=== PATIENT | female | born 1945 | race Caucasian/White ===

== ENCOUNTER 2018-11-04 10:41 | Inpatient (IN) ==
[2018-11-04] MEDS ORDERED: DUONEB (A & A) INH ONE (11:02)
[2018-11-04] MEDS ORDERED: SOLU-MEDROL IV ONE (11:03)
--- NOTE | 2018-11-04 11:06 | PROVIDER DOCUMENTATION ---
HPI-General Adult - General Chief Complaint: Shortness of Breath Stated Complaint: FLUID ON LUNG Time Seen by Provider: 11/04/18 10:58 Source: patient Allergies/Adverse Reactions: Patient Allergies Allergy/AdvReac Type Severity Reaction Status Date / Time No Known Allergies Allergy Verified 10/08/12 12:56 Home Medications: Home Medication List Medication Instructions Recorded Confirmed Last Taken Type Lovastatin [Altoprev] 40 mg PO DAILY 01/30/12 10/08/12 10/07/12 21:00 History Sotalol [Betapace] 120 mg PO BID 01/30/12 10/08/12 10/08/12 08:00 History Zolpidem [Ambien] 5 mg PO QHS 01/30/12 10/08/12 10/07/12 21:00 History Aspirin 81 mg PO DAILY 10/08/12 10/08/12 10/08/12 08:00 History Acetaminophen [Tylenol] 650 mg PO PRN PRN #0 tablet 10/11/12 Unknown Rx Amoxicillin/Pot Clavulanate 875 mg PO Q12HR #16 tablet 10/11/12 Unknown Rx [Augmentin] Enoxaparin [Lovenox] 40 mg SUBQ Q24H #5 syringe 10/11/12 Unknown Rx Magnesium Hydroxide [Milk of 30 ml PO DAILY PRN PRN #0 udc 10/11/12 Unknown Rx Magnesia] Omeprazole [Prilosec] 20 mg PO DAILY@0700 #0 capsule 10/11/12 Unknown Rx Sertraline [Zoloft] 100 mg PO QAM #0 tablet 10/11/12 Unknown Rx Tramadol [Ultram] 50 mg PO Q6H PRN PRN #0 tablet 10/11/12 Unknown Rx - History of Present Illness -Gen Adult Nature of Presenting Problems: Pt. is 73 yof that presents with c/o SOB for two weeks. Pt. reports she thought it would get better. She denies being a smoker and states she went to her PCP today and he sent her to the ED. She has no other complaints. Location of Pain/Injury: reports: none. denies: head, face, mouth, neck, chest, upper extremity, hand(s), abdomen, back, pelvis, genitalia, lower extremity, feet, upper body, lower body, generalized, other Pain Radiation: reports: no radiation. denies: arm(s), back, buttocks, chest, epigastric, feet, groin, jaw, flank (L), legs (lower), LLQ, LUQ, neck, periumbilical, flank (R), RLQ, RUQ, shoulder(s), scapula, scrotal, sternal notch, suprapubic, legs (upper), urethral, vaginal, other Quality of Pain: reports: none. denies: aching, pressure, sharp, throbbing, tightness Severity: reports: moderate. denies: mild, severe Onset/Duration: reports: gradual, other (Two weeks) Timing: reports: still present. denies: improving, constant, getting worse Context/Activities at Onset: reports: none. denies: light activity, moderate activity, vigorous activity, recent emotional stress, recent physical stress, recent trauma history, possible bad food, cold exposure, eating, out of country travel, rest, sleep, sexual activity, other Modifying Factors: improves with: nothing Associated Symptoms: reports: shortness of breath. denies: denies symptoms, anxiety, arm pain, back/neck pain, chest pain, constipation, cough, diaphoresis, diarrhea, dizziness, EENT symptoms, fatigue, fever/chills, genitourinary problems, headaches, heartburn, joint pain, loss of appetite, malaise, muscle aches, sinus congestion/drainage, nausea, rash, seizure, sensory/motor loss, payam n with inspiration, swelling/mass in abdomen, syncope, vomiting, weakness, trouble walking, other Similar Symptoms Previously?: Yes Recently seen or treated by another doctor?: Yes Review of Systems - Adult - REVIEW OF SYSTEMS - ADULT Constitutional: reports: no symptoms reported Eyes: reports: no symptoms reported Ears, Nose, Mouth & Throat: reports: no symptoms reported Cardiovascular: reports: no symptoms reported Respiratory: reports: see HPI, shortness of breath. denies: cough, dyspnea on exertion, pleurisy Gastrointestinal: reports: no symptoms reported Genitourinary: reports: no symptoms reported Musculoskeletal: reports: no symptoms reported Integumentary: reports: no symptoms reported Neurological: reports: no symptoms reported Psychiatric: reports: no symptoms reported Past History - Adult - PAST MEDICAL HISTORY-ADULT Review of Records: reports: Old Records Reviewed, Nursing Assessment Review, Medications Reviewed, Social history reviewed & non-contributory. - IMMUNIZATION STATUS Childhood Immunizations: See Nurse Assessment Flu Vaccine: See Nurse Assessment - FAMILY HISTORY Family History: reviewed, not pertinent - SOCIAL HISTORY Smoking: non-smoker Physical Exam-General - PHYSICAL EXAM-ADULT Initial Vital Signs Reviewed: Yes - CONSTITUTIONAL General Appearance: alert, mild distress. negative: anxious, slow to respond, obtunded, combative - EYES Eyes: PERRL/EOMI, pink conjunctivae - HEAD, EARS, NOSE, MOUTH & THROAT HENMT: normocephalic/atraumatic, moist mucous membranes - NECK Neck: non-tender, full range of motion, supple, normal inspection - RESPIRATORY Respiratory: decreased breath sounds. negative: crackles, rales, rhonchi, stridor, wheezing - CARDIOVASCULAR Cardiovascular: normal peripheral pulses, regular rate, rhythm, no edema - GASTROINTESTINAL (ABDOMEN) Abdominal Exam: normal bowel sounds, non tender, soft - LYMPHATIC Lymphatic: no adenopathy. negative: axilla node tender, cervical node tenderness - MUSCULOSKELETAL Back Exam: normal inspection, no CVA tenderness, no vertebral tenderness Extremity: normal range of motion, non-tender, normal inspection. negative: erythema, inflammation, swelling, tenderness Peripheral Pulses: radial (R): 2+, radial (L): 2+ - SKIN Integumentary: normal color, normal turgor, warm/dry. negative: erythema, mottled, warm - NEUROLOGIC Neurologic: grossly normal, no motor/sensory deficits - PSYCHIATRIC Psych/Mental Status: normal mood/affect, normal thought content, normal thought process, oriented x 3. negative: anxious, paranoid, tearful Progress - PLAN OF CARE/RESULTS Progress/Plan/Lab Results: Vital Signs - 8 hr 11/04/18 10:45 Temperature 98 F Pulse Rate 58 L Respiratory Rate 22 Blood Pressure 147/81 O2 Sat by Pulse Oximetry 92 L Orders Category Date Time Status Saline Loc NOW Care 11/04/18 11:01 Active CHEST-2 VIEWS [RAD] Stat Exams 11/04/18 11:02 Ordered ABG [RESP] Routine Lab 11/04/18 11:02 Ordered CBC WITH ELECTRONIC DIFF [HEME] Stat Lab 11/04/18 11:01 Uncollected CK PROFILE [SP CHEM] Stat Lab 11/04/18 11:01 Uncollected COMPREHENSIVE METABOLIC PANEL [CHEM] Stat Lab 11/04/18 11:01 Uncollected PRO B-NATRIURETIC PEPTIDE Stat Lab 11/04/18 11:02 Ordered TROPONIN T Stat Lab 11/04/18 11:[address] W/POSS RFLX CULT [URINALYSIS] Stat Lab 11/04/18 11:02 Uncollected Albuterol 2.5MG/Ipratrop 0.5MG [Duoneb (A & A)] Med 11/04/18 11:02 Once 3 ml INH NOW ONE Methylprednisolone Sod Succ [Solu-Medrol] Med 11/04/18 11:03 Once 80 mg IV NOW ONE Aerosol Treatments Routine Oth 11/04/18 11:03 Active Aerosol Treatments Stat Oth 11/04/18 11:03 Active EKG [EKG] Stat Ther 11/04/18 11:01 Ordered Result Diagrams: 11/04/18 11:41 11/04/18 11:41 - XRAY 1 XRAY Study: Chest ([address], [address], [place] [address] Department of Imaging Patient: AUNDREA RAMIREZ Date: #: [id number] : 1945DM Status: REG ERAt#: [id number] Age/Sex: 73/FRoom/Bed: Loc: P.ED Ordering Physician: Luz Elena Clark Family Physician: Renaldo Dunn MD Reason for Procedure: SOB ___ Signed CHEST-2 VIEWS - 11/04/2018 INDICATION: SOB COMPARISON: 10/08/2012 FINDINGS: There is a pulmonary nodule in the right middle lobe. 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 No infiltrates or edema. No pneumothorax or pleural effusion. There is a stable atrial septal defect occluder. Heart size and pulmonary vascularity is normal. IMPRESSION: No acute disease or change from prior. Electronically signed by Garrick Golden 11/04/2018 11:44 AM 11/04/18 1144 Interpreting Physician: Garrick Golden MD Dictated Date/Time: 11/04/18 1136 cc: Luz Elena Clark; Renaldo Dunn MD) XRAY Interpretation: See note - CONSULTS/PCP/HOSPITALIST Notification #1 *Consult/PCP/Hospitalist*: Dr. Irving Time Discussed: 14:10 Reason/Comments: Admission Consult Disposition: Admit (Put patient on Rocephin q24h) Departure - Departure Date of Disposition Decision: 11/04/18 Time of Disposition Decision: 13:39 DIAGNOSIS: Shortness of breath, Hypoxia Disposition: ADMITTED INPATIENT 09 Certified Medical Emergency: Emergent Condition: Stable Referrals and Follow-Ups: Renaldo Dunn MD [Primary Care Provider] - - Critical Care Note This patient required my direct & personal management of CC.: No Attestation - Physician/ HENRIK Attestation Patient care was provided by Advanced Practice Provider:: Yes Advanced Practice Provider:: Luz Elena Clark Advanced Practice Provider documentation review:: The Mid-level provider do cumentation, treatment plan and medical decision making was reviewed by the physician who agrees with all treatment and medical decision making by the MLP. The physician spent face to face time with patient:: No Advanced Practice Provider documentation review:: Supervising physician onsite and consulted in the evaluation and care of this patient. The physician did not have a face to face encounter with the patient.
--- NOTE | 2018-11-04 11:46 | Diag Imaging Result Doc PS360 ---
CHEST-2 VIEWS - 11/04/2018 INDICATION: SOB COMPARISON: 10/08/2012 FINDINGS: There is a pulmonary nodule in the right middle lobe. 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 No infiltrates or edema. No pneumothorax or pleural effusion. There is a stable atrial septal defect occluder. Heart size and pulmonary vascularity is normal. IMPRESSION: No acute disease or change from prior. Electronically signed by Garrick Golden 11/04/2018 11:44 AM
[2018-11-04 12:04] LABS: HEMATOCRIT 45.9 % (37.0-47.0); HEMOGLOBIN 15.7 g/dL (12.0-16.0); MCH 30.6 PG (27-31); MCHC 34.2 g/dL (33-37); MCV 89.5 FL (81-99); MPV 10.9 FL (7.4-10.4); NEUT% 58.6 % (42.2-75.2); PLT 240 X1000 (130-400); RBC 5.13 XMIL (4.2-5.4); RDW 12.3 % (11.5-14.5); WBC 6.84 X1000 (4.8-10.8)
[2018-11-04 12:05] LABS: BASO# 0.02 X1000 (0.0-0.2); BASO% 0.3 % (0.0-0.8); EOS# 0.37 X1000 (0.0-0.7); EOS% 5.4 % (0.0-10.0); IMM GRAN# 0.03 X1000 (0.0-0.04); IMM GRAN% 0.4 % (0.0-0.5); LYMPH# 1.64 X1000 (1.2-3.4); MONO# 0.77 X1000 (0.11-0.59); MONO% 11.3 % (1.7-9.3); NEUT# 4.01 X1000 (1.4-6.5)
[2018-11-04 12:25] LABS: BLOOD TYPE ARTERIAL; HCO3-(ACT) 24.8 mmoll (20.0-26.0); METHB 0.6 % (0.0-1.5); O2(CT) 20.9 mL/dL (15.0-23.0); O2HB 92.3 % (95.0-99.0); PCO2(98.6) 43 mmHg (35-45); PO2(98.6) 63 mmHg (60-100); SAMPLE BLOOD; SAO2 94.4 % (95.0-100.0); THB 16.1 g/dL (11.5-17.4); pH(98.6) 7.38 (7.35-7.45)
[2018-11-04 12:27] LABS: ALLEN TEST YES; MODALITY CANNULA
[2018-11-04 12:32] LABS: AGAP 11; ALBUMIN 4.7 g/dL (3.5-5.0); ALKALINE PHOSPHATASE 73 U/L (32-104); BUN 18 mg/dL (8-22); CALCIUM 9.7 mg/dL (8.8-10.2); CHLORIDE 105 mmol/L (98-107); CK PROFILE 85 U/L (24-173); COSMO 288; CREATININE 0.9 mg/dL (0.5-0.9); ESTIMATED GFR > 60; GLUCOSE 113 mg/dL (70-104); GOT 16 U/L (10-30); GPT 15 U/L (10-36); POTASSIUM 4.4 mmol/L (3.5-5.1); SODIUM 143 mmol/L (136-145); TCO2 27 mmol/L (25-35); TOTAL PROTEIN 7.3 g/dL (6.3-8.3)
--- NOTE | 2018-11-04 12:36 | EKG Report ---
Test Performed on : 11/04/2018 11:23:01 AM Test Reason : SOB Blood Pressure : / mmHG Vent. Rate : 058 BPM Atrial Rate : 058 BPM P-R Int : 174 ms QRS Dur : 084 ms QT Int : 458 ms P-R-T Axes : 018 021 029 degrees QTc Int : 449 ms Sinus bradycardia. Cannot rule out Inferior infarct , age undetermined Abnormal ECG When compared with ECG of 30-JAN-2012 18:35, Minimal criteria for Inferior infarct are now present Unconfirmed Result
--- NOTE | 2018-11-04 12:41 | ED EKG INTERP ---
This chart was entered by Melodie Paulson Scribe, acting as scribe for Jaime Reyes MD. EKG Interpretation - EKG Time of EKG reading by physician:: 11:23 EKG Read and Signed by:: Jaime Reyes EKG Interpretation (*Must complete 3 of following elements*): Abnormal (cannot rule out inferior infarct, age undetermined early transition) Rate: 58 Rhythm: sinus bradycardia QRS: normal ST Wave: normal Attestation - Physician/ HENRIK Attestation Patient care was provided by Advanced Practice Provider:: No The physician spent face to face time with patient:: Yes Advanced Practice Provider documentation review:: Supervising physician onsite and consulted in the evaluation and care of this patient. The physician did have a face to face encounter with the patient. This chart was documented by the indicated scribe, (Melodie Paulson Scribe) and accurately reflects the services I performed and decisions made by , Jaime Reyes MD, as attested by the provider's signature.
[2018-11-04 13:18] LABS: BILIRUBIN URINE NEGATIVE (NEGATIVE); BLOOD URINE 4+ (NEGATIVE); CLARITY SL. CLOUDY (CLEAR); COLOR YELLOW; GLUCOSE URINE NEGATIVE (NEGATIVE); KETONE URINE TRACE mg/dL (NEGATIVE); LEUKOCYTES URINE 1+ (NEGATIVE); NITRITE URINE NEGATIVE (NEGATIVE); PH URINE 6.5; PROTEIN URINE 1+(30 mg/dL) mg/dL (NEGATIVE); SP GRAVITY URINE 1.025; UROBILINOGEN URINE NORMAL
[2018-11-04 13:37] LABS: URINE RBC 20-40 /HPF (<10)
[2018-11-04 13:38] LABS: URINE BACTERIA 2+ /HFP; URINE EPITHELIAL CELLS <10 /HPF (<10); URINE SOURCE CLEAN CATCH
[2018-11-04] MEDS: ROCEPHIN 1 GM in NS 50 ML IV SCH (14:33)
--- NOTE | 2018-11-04 14:41 | Diag Imaging Result Doc PS360 ---
CT ANGIOGRM PULMONARY ARTERIES - 11/04/2018 INDICATION: SOB TECHNIQUE: Axial CT images were obtained after administering intravenous contrast. Coronal MIP images were generated. COMPARISON: 10/08/2012 FINDINGS: There is significant patient motion artifact. There is no pulmonary embolism. There is a stable pulmonary arteriovenous malformation at the medial segment of the right middle lobe. There is mild cardiomegaly. No adenopathy. No infiltrates. Most of the abdomen was also imaged. There is severe left hydronephrosis. There are several large obstructing stones in the proximal and mid left ureter. These measure up to 8 mm. There is also a large left renal stone measuring 14 x 8.4 mm. There are large stones in the right kidney as well but no hydronephrosis. The large right renal stone measures about 13 x 8.7 mm. IMPRESSION: 1. Negative for pulmonary embolism. 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 2. Severe left hydronephrosis due to numerous large obstructing left ureter stones. 3. Large bilateral renal stones. This exam was performed using automated exposure control, adjustment of mA or kV according to patient size, and/or use of iterative reconstruction technique Electronically signed by Garrick Golden 11/04/2018 2:38 PM
[2018-11-04] MEDS: DUONEB (A & A) INH SCH ×3 (15:49→23:18)
[2018-11-04] MEDS: COMPAZINE PO SCH (16:37)
--- NOTE | 2018-11-04 18:21 | HISTORY AND PHYSICAL ---
CHIEF COMPLAINT: Shortness of breath for 2 weeks. HISTORY OF PRESENT ILLNESS: This is a 73-year-old female with a history of tobacco use, prior CVA, paroxysmal atrial fibrillation who presented to the emergency room complaining of 2 weeks of shortness of breath. The patient states that symptoms have waxed and waned during this time. She was evaluated in an Urgent Care this morning prior to coming to the ER. She was found to have a room air O2 saturation 88%. They sent her to the emergency room for evaluation of possible pneumonia and pulmonary edema. PAST MEDICAL HISTORY: Skin cancer, CVA x2 in 1988 and 2003, seizures. PAST SURGICAL HISTORY: section and PFO repair. SOCIAL HISTORY: She denies alcohol, tobacco, or illicit drug use. ALLERGIES: No known drug allergies. HOME MEDICATIONS: A list will be obtained by the nursing staff, and once verified, we will review and restart as is appropriate. REVIEW OF SYSTEMS: Discussed with the patient with pertinent positives stated in the HPI. She denied any syncope or dizziness, any chest pain or palpitations, any night sweats, any fevers or chills, recent weight loss or weight gain, a productive cough, any nausea, vomiting, diarrhea, constipation, black or bloody vomitus or stools, any hematuria, dysuria, frequency, urgency. PHYSICAL EXAMINATION: GENERAL: This is a 73-year-old female who is lying on the stretcher in the emergency room in no distress. VITAL SIGNS: Blood pressure is 137/86 with a heart rate of 60. Respirations are 19. Temperature is 98.1 degrees oral with room air saturations that were 92% and sats are 96% on 2 L nasal cannula. CARDIOVASCULAR: Regular rate and rhythm. S1 and S2 appreciated. She has no lower extremity edema. Calves are nontender bilateral with peripheral pulses palpable x4 extremities. PULMONARY: Breath sounds are noted with wheezes scattered throughout. Chest rises and falls symmetrically with respiration. Chest wall is nontender to palpation. GASTROINTESTINAL: Abdomen is soft, nontender, nondistended with bowel sounds in all 4 quadrants. GENITOURINARY: She has no CVA or suprapubic tenderness. NEUROLOGIC: She is alert and oriented x3. SKIN: Warm and dry. LABORATORY DATA: 1. WBC is 6.8 with hemoglobin 15.7, hematocrit 45.9, and platelets of 240,000. Sodium is 143, potassium 4.4, BUN 18, creatinine 0.9 with a glucose of 113. Troponin is negative. Urinalysis reveals 1+ protein with 4+ blood with 20 to 40 microscopic red blood cells, 10 to 20 microscopic white blood cells, less than 10 epithelial cells and 2+ bacteria. 2. Chest x-ray revealed no acute disease. 3. Pulmonary arteriogram revealed negative for pulmonary embolism, stable longstanding pulmonary arterial venous malformation in the right middle lobe. 4. Severe left hydronephrosis due to numerous large obstructing left ureter stones. 5. Large bilateral renal stones with the left measuring 14 x 8.4 mm, the right 13 x 8.7 mm. Of note, she does have several obstructing stones in the proximal and mid left ureter that measure up to 8 mm per radiology read with severe left hydronephrosis. ASSESSMENT AND PLAN: 1. Obstructing left ureter stones with left hydronephrosis. 2. Bilateral renal stones as stated above. 3. Shortness of breath. 4. Hypoxemia. 5. Urinary tract infection. 6. History of cerebrovascular accident. PLAN: The patient will be transferred to [facility]. Dr. Rodriguez in Urology will be consulted. NPO till evaluated by urology. Urine culture has been obtained in the emergency room. She was given Rocephin, which will continue, and further antibiotics will be culture driven. Give DuoNebs q.4 hours. We will identify her home medications and continue as appropriate. We will give supplemental oxygen. For DVT prophylaxis, we will use SCDs and GI prophylaxis, Prilosec. Further treatments pending hospital course. Dictated by MARICRUZ Moore for Jay Jay Irving MD cc: MARICRUZ Moore MD [facility]
[2018-11-04] MEDS: BETAPACE PO SCH (21:40)
[2018-11-04] MEDS: AMBIEN PO PRN (21:41)
[2018-11-05] MEDS: DUONEB (A & A) INH SCH ×6 (03:21→23:43)
[2018-11-05] MEDS ORDERED: TYLENOL PO PRN (04:32)
--- NOTE | 2018-11-05 05:23 | HISTORY AND PHYSICAL ---
ADDENDUM: Patient seen and examined by myself. Full note dictated and discussed with nurse practitioner. She presented to the hospital initially with heart problems and felt dizzy and lightheaded. Upon workup, she was noted to have severe left hydronephrosis with large obstructing left ureteral stones. We will transfer her to [facility] for Urology. We will follow-up blood pressures which are currently elevated, and we will follow. cc: Jay Jay Irving MD
--- NOTE | 2018-11-05 05:24 | HISTORY AND PHYSICAL ---
ADDENDUM: Patient seen and examined by myself. Full note dictated and discussed with nurse practitioner. The patient is a 73-year-old female who presented to the hospital with increased cough, congestion, and shortness of breath for the past 2 weeks. She is also noted to be hypoxic. We will admit her to the hospital and follow. cc: Jay Jay Irving MD
[2018-11-05] MEDS: PRILOSEC PO SCH (06:11)
[2018-11-05] MEDS: BETAPACE PO SCH ×2 (09:16→21:16)
[2018-11-05] MEDS: LEXAPRO PO SCH (09:16)
[2018-11-05] MEDS: COMPAZINE PO SCH ×3 (09:17→17:29)
[2018-11-05] MEDS: ROCEPHIN 1 GM in NS 50 ML IV SCH (13:39)
--- NOTE | 2018-11-05 14:42 | PROGRESS NOTE ---
DATE: 11/05/2018 SUBJECTIVE: Today Ms. Aguillon referred to be doing a little better. She said she did have some difficulty breathing, especially on exertion; that was the main presenting complaint. She said this has been going on for some time, and it has reached a point where even in recumbency she is still symptomatic. OBJECTIVE: Vital signs: Blood pressure is 124/44, pulse of , respirations 16, temperature 98.2 degrees. On general exam, Ms. Aguillon is a 73-year-old obese female. She is in bed. BMI is 33.3. She did not seem to be in any distress. Mucosa is pink and moist. Anicteric. Acyanotic. Neck is supple. Chest: Good air entry bilateral. Did not hear any crepitations or rhonchi. Cardiovascular: Regular rate and rhythm. Abdomen is soft, distended, but nontender. Bowel sounds present. Extremities: No pedal edema. Central Nervous System: Patient is awake, alert, and oriented. DIAGNOSTIC STUDIES: Laboratory data from yesterday was unremarkable. Urinalysis has also been reviewed. So far, urine culture is negative. A chest x-ray showed no acute disease. A CTA of the lungs was negative. However, there was a severe left hydronephrosis due to numerous large obstructing left ureteral stones. There were also large bilateral renal stones. ASSESSMENT: 1. Severe left hydronephrosis with bilateral nephrolithiases. Urology has been consulted. The patient is currently on IV antibiotics. 2. Dyspnea on exertion associated with fatigue. So far troponin and proBNP seem to be normal. We are going to do iron studies. We will also do TSH to rule out any thyroid endocrinopathy. It is also very possible that this is medication induced, especially the sotalol. Echocardiogram has also been ordered. 3. History of cerebrovascular accident with mild left-sided hemiparesis. Noted. 4. History of atrial fibrillation. On sotalol. Currently rate controlled. cc: Rachid Easley MD
[2018-11-05] MEDS: AMBIEN PO PRN (22:01)
[2018-11-06] MEDS: DUONEB (A & A) INH SCH ×5 (03:29→19:00)
[2018-11-06] MEDS: PRILOSEC PO SCH (06:08)
[2018-11-06] MEDS: BETAPACE PO SCH ×2 (08:48→20:26)
[2018-11-06] MEDS: COMPAZINE PO SCH ×6 (08:53→18:10)
[2018-11-06] MEDS: LEXAPRO PO SCH (09:02)
[2018-11-06 09:18] LABS: BASO# 0.03 X1000 (0.0-0.2); BASO% 0.3 % (0.0-0.8); EOS# 0.06 X1000 (0.0-0.7); EOS% 0.5 % (0.0-10.0); HEMATOCRIT 45.7 % (37.0-47.0); HEMOGLOBIN 15.7 g/dL (12.0-16.0); IMM GRAN# 0.03 X1000 (0.0-0.04); IMM GRAN% 0.3 % (0.0-0.5); LYMPH% 21.8 % (20.5-51.1); MCH 30.5 PG (27-31); MCHC 34.4 g/dL (33-37); MCV 88.9 FL (81-99); MONO# 1.42 X1000 (0.11-0.59); MONO% 12.9 % (1.7-9.3); MPV 11.3 FL (7.4-10.4); NEUT# 7.05 X1000 (1.4-6.5); NEUT% 64.2 % (42.2-75.2); PLT 271 X1000 (130-400); RBC 5.14 XMIL (4.2-5.4); RDW 12.3 % (11.5-14.5); WBC 10.99 X1000 (4.8-10.8)
[2018-11-06 10:03] LABS: ALB/GLOB RATIO 1.3; ALBUMIN 4.1 g/dL (3.5-5.0); CALCIUM 9.7 mg/dL (8.8-10.2); POTASSIUM 3.9 mmol/L (3.5-5.1); TOTAL BILIRUBIN 0.58 mg/dL (0.20-1.00); TOTAL PROTEIN 7.3 g/dL (6.3-8.3)
[2018-11-06 10:04] LABS: IRON SATURATION 25 %; TIBC 285 ug/dL; TOTAL IRON 71 ug/dL (49-151); UNBOUND IRON 214 ug/dL (112-346)
[2018-11-06 10:09] LABS: FERRITIN 211 ng/mL (13-150)
[2018-11-06] MEDS ORDERED: XYLOCAINE-MPF 2% ONE (10:45)
[2018-11-06] MEDS ORDERED: DIPRIVAN 1% ONE ×2 (10:45→11:47)
[2018-11-06] MEDS ORDERED: EPHEDRINE ONE (11:31)
[2018-11-06] MEDS ORDERED: UROGESIC-BLUE PO PRN (12:36)
--- NOTE | 2018-11-06 13:26 | Diag Imaging Result Doc PS360 ---
FLUROSCOPY CYSTO - 11/06/2018 INDICATION: LT URETEROSCOPY/ LASER LITH TECHNIQUE: The exam was performed by the patient's urologist. 15 images were obtained. COMPARISON: CT from 11/04/2018 FINDINGS: There was placement of a wire and instrument in the left ureter. A left nephroureteral stent was placed in good position. IMPRESSION: No complication. Electronically signed by Garrick Golden 11/06/2018 1:23 PM
--- NOTE | 2018-11-06 14:41 | ECHO REPORT ---
ORDER DATE: 11/05/2018 MEASUREMENTS: Septal thickness 0.9. Left ventricular internal diameter end-diastole 4.4. Posterior wall thickness 0.9. Left ventricular internal diameter end-systole 3.1. Right atrium. 3.2. Right ventricle 3.6. SUMMARY: 1. Adequate quality study. 2. Very mild sclerosis involving trileaflet aortic valve demonstrated with normal aortic valve opening evident. Peak gradient across the aortic valve is less than 10 mmHg. Mitral, tricuspid, and pulmonic valves are without evidence of structural abnormality with trace mitral regurgitation, trace tricuspid regurgitation, and mild pulmonic insufficiency. The aortic root is normal size. 3. Normal left ventricular dimensions demonstrated. Estimated left ventricular ejection fraction approximately 60%. No regional wall motion abnormalities are evident. Doppler suggests grade 1 left ventricular diastolic dysfunction. Left atrium, right atrium, right ventricle normal size with normal right ventricular systolic function. Interatrial septum appears to have a closure device in its midportion. There is no evidence on color Doppler of interatrial shunting. Intravenous agitated saline contrast study demonstrates right to left shunting. This shunting does not appear to be coming across the interatrial septum, but rather recurring in a somewhat delayed fashion after 3 to 4 beats, potentially due to pulmonary AV malformation. 4. No pericardial effusion. 5. Appearance of inferior vena cava suggests normal central venous pressure. cc: MD Rachid Dawson MD
--- NOTE | 2018-11-06 15:09 | PROGRESS NOTE ---
DATE: 11/06/2018 SUBJECTIVE: Today Ms. Aguillon refers to be feeling much better. She just came out of surgery where a left J-stent was put. I am still waiting for the official report on the surgery to know specifically what was done. OBJECTIVELY: Her Current Vitals: Blood pressure 127/98, pulse of 70s, respiration is 18, temperature is 98.6 degrees. On general exam, Ms. Aguillon is a 73-year-old female. She is in bed, no distress. Mucosa is pink and moist. Anicteric. Acyanotic. Neck is supple. Chest: Good air entry bilateral. There were no crepitations, no rhonchi. Cardiovascular: Regular rate and rhythm. No murmurs, no rubs, no gallops. Abdomen: Soft. Extremities: No pedal edema. Central Nervous System: Patient is awake, alert, and oriented. DIAGNOSTIC STUDIES: Laboratory data has been reviewed. WBC is up to 10.99, hemoglobin is 15.7, platelet count 271. Chemistry is also reviewed and unremarkable. So far, iron studies have all been within normal range. The patient's echocardiogram shows an ejection fraction of 60%. No regional wall motion abnormality, but there is a suggestion of possible pulmonary AV malformation on the echo report. ASSESSMENT: 1. Severe left hydronephrosis. The patient is status post urological intervention. A double-J stent has been placed. We are going to continue with the current antimicrobial therapy. Patient will also be started on gentle IV hydration. 2. Dyspnea on presentation. ProBNP is normal. Echocardiogram shows normal ejection fraction and unremarkable valves so this is probably non-cardiac. There is also mention of a [id number] shunting, potentially due to a pulmonary AV malformation which could potentially cause some of the dyspnea. 3. History of history of previous cerebrovascular accident with mild left-sided hemiparesis. 4. History of atrial fibrillation. Patient is on sotalol. 5. Generalized fatigue. The patient is getting gentle hydration. Medications have been reviewed, and we will get Physical Therapy to evaluate her. cc: Rachid Easley MD
[2018-11-06] MEDS: ROCEPHIN 1 GM in NS 50 ML IV SCH (15:20)
[2018-11-06] MEDS: NS 1,000 ML IV SCH ×2 (15:24→22:30)
[2018-11-06] MEDS: NORCO-7.5 PO PRN (18:08)
[2018-11-06] MEDS ORDERED: ADENOCARD IV ONE (18:21)
[2018-11-06] MEDS: KLONOPIN PO SCH ×2 (18:23→22:30)
--- NOTE | 2018-11-06 19:13 | PROGRESS NOTE ---
DATE: 11/06/2018 SUBJECTIVE: I evaluated this patient at the bedside. I requested an EKG that showed SVT, at this the patient's heart rate has been elevated for at least more than 20 minutes. I did some vagal maneuvers, but the heart rate stayed elevated. Then, I proceeded to use some adenosine 6 mg x1, and I monitored this patient at the bedside. After getting treatment stat, the heart rate came back to normal sinus. For a moment this patient was a little bit dizzy, but then the patient felt better. I will transfer this patient to the [facility], and also I will get Cardiology Department to see if they can evaluate this patient probably in the morning, not only for her SVT but also, she has an echocardiogram that showed an intravenous agitated saline contrast that demonstrate right-to- left shunting. This shunting does not appear to be coming across the interatrial septum, but rather recurrent in a somewhat delayed fashion after 3 to 4 beats. Potentially it could be related to pulmonary IV malfunction. I am not quite sure if this patient has a regular agency service coordinator, but I believe she should have 1 in [facility]. Like I mentioned before, we will monitor this patient in the [facility]. cc: Matt Mujica MD
[2018-11-06] MEDS ORDERED: ADENOCARD ONE (19:37)
[2018-11-07] MEDS: DUONEB (A & A) INH SCH ×7 (03:45→23:23)
[2018-11-07] MEDS: NS 1,000 ML IV SCH ×3 (05:05→17:36)
[2018-11-07 05:41] LABS: BASO# 0.02 X1000 (0.0-0.2); BASO% 0.3 % (0.0-0.8); EOS# 0.12 X1000 (0.0-0.7); EOS% 1.5 % (0.0-10.0); HEMATOCRIT 41.9 % (37.0-47.0); HEMOGLOBIN 14.3 g/dL (12.0-16.0); IMM GRAN# 0.02 X1000 (0.0-0.04); IMM GRAN% 0.3 % (0.0-0.5); LYMPH# 1.91 X1000 (1.2-3.4); LYMPH% 24.1 % (20.5-51.1); MCH 30.6 PG (27-31); MCHC 34.1 g/dL (33-37); MCV 89.7 FL (81-99); MONO# 1.16 X1000 (0.11-0.59); MONO% 14.7 % (1.7-9.3); MPV 10.6 FL (7.4-10.4); NEUT# 4.68 X1000 (1.4-6.5); NEUT% 59.1 % (42.2-75.2); PLT 223 X1000 (130-400); RBC 4.67 XMIL (4.2-5.4); RDW 12.3 % (11.5-14.5); WBC 7.91 X1000 (4.8-10.8)
[2018-11-07] MEDS: PRILOSEC PO SCH ×2 (05:56→06:10)
[2018-11-07 06:08] LABS: AGAP 12; ALBUMIN 3.4 g/dL (3.5-5.0); BUN 15 mg/dL (8-22); CALCIUM 9.3 mg/dL (8.8-10.2); CHLORIDE 106 mmol/L (98-107); COSMO 284; CREATININE 0.8 mg/dL (0.5-0.9); ESTIMATED GFR > 60; GLUCOSE 98 mg/dL (70-104); PHOSPHORUS 3.2 mg/dL (2.7-4.5); POTASSIUM 3.3 mmol/L (3.5-5.1); SODIUM 142 mmol/L (136-145); TCO2 24 mmol/L (25-35)
--- NOTE | 2018-11-07 07:29 | EKG Report ---
Test Performed on : 11/06/2018 6:04:27 PM Test Reason : elevated HR /SVT Blood Pressure : / mmHG Vent. Rate : 161 BPM Atrial Rate : 178 BPM P-R Int : 000 ms QRS Dur : 084 ms QT Int : 306 ms P-R-T Axes : 000 074 -51 degrees QTc Int : 500 ms Supraventricular tachycardia. Marked ST abnormality, possible inferior subendocardial injury Abnormal ECG When compared with ECG of 04-NOV-2018 11:23, (Unconfirmed) Vent. rate has increased BY 103 BPM Minimal criteria for Inferior infarct are no longer present ST now depressed in Inferior leads ST now depressed in Anterolateral leads T wave inversion now evident in Inferior leads T wave inversion now evident in Anterolateral leads Confirmed by Yunier MCLAIN, Eduardo Rojas ([id number]) on 11/07/2018 5:09:23 PM
--- NOTE | 2018-11-07 08:04 | EKG Report ---
Test Performed on : 11/06/2018 6:26:44 PM Test Reason : REPEAT Blood Pressure : / mmHG Vent. Rate : 088 BPM Atrial Rate : 088 BPM P-R Int : 172 ms QRS Dur : 082 ms QT Int : 378 ms P-R-T Axes : 022 018 023 degrees QTc Int : 457 ms Normal sinus rhythm. Nonspecific ST and T wave abnormality Abnormal ECG When compared with ECG of 06-NOV-2018 18:04, (Unconfirmed) Vent. rate has decreased BY 73 BPM Questionable change in QRS axis ST no longer depressed in Inferior leads T wave inversion no longer evident in Inferior leads T wave inversion less evident in Anterolateral leads Confirmed by Yunier MCLAIN, Eduardo Rojas ([id number]) on 11/07/2018 5:09:26 PM
[2018-11-07] MEDS ORDERED: MAGNESIUM SULFATE 2 GM/S.W.I. 2 GM/50 ML IVPB IV ONE (08:05)
[2018-11-07] MEDS: KLONOPIN PO SCH ×2 (08:46→20:09)
[2018-11-07] MEDS: COMPAZINE PO SCH ×5 (08:46→18:07)
[2018-11-07] MEDS: LEXAPRO PO SCH (08:46)
[2018-11-07] MEDS: BETAPACE PO SCH ×2 (08:46→20:09)
[2018-11-07] MEDS: POTASSIUM CHLORIDE 20 MEQ/SWI 20 MEQ/100 ML IVPB IV SCH ×2 (08:47→11:11)
--- NOTE | 2018-11-07 09:27 | OPERATIVE NOTE ---
PROCEDURE DATE: 11/06/2018 SURGEON: Deni Rodriguez MD. PREOPERATIVE DIAGNOSIS: Left ureteral stones, hydronephrosis. POSTOPERATIVE DIAGNOSIS: Left ureteral stones, hydronephrosis. PROCEDURE: Cystoscopy, left ureteroscopy, laser lithotripsy, stone basket extraction of 2 ureteral stones, placement of 6-Indonesian, 22 cm left ureteral stent. INDICATIONS: 73-year-old female who was admitted to the hospital with shortness of breath. In the process, she underwent a pulmonary arteriogram which revealed bilateral renal stones as well as obstructing left proximal ureteral stone with significant hydronephrosis. She was counseled on treatment given that 1 of the stones was 8 mm and another one was 6 mm. She desires to proceed with intervention. FINDINGS: Findings both stones were treated. The stone fragments were sent off for analysis. Adequate placement of left ureteral stent. PROCEDURE: After obtaining informed consent, patient was brought to the operating room. Perioperative antibiotics and anesthesia were administered. She was placed in the lithotomy position, prepped and draped in sterile fashion. A 21-Indonesian rigid cystoscope was used to gain access to the urethra and the bladder which was then examined in systematic fashion. Her bladder showed no evidence of mucosal lesions, excessive trabeculations, or diverticula. There were no stones within the bladder lumen. Attention was turned to the left ureteral orifice which was cannulated with PTFE wire. It was in turn advanced to the level of left renal pelvis although we met resistance at the level of proximal ureter. Then fluoroscopically were able to see the stones. I then advanced a rigid ureteroscope up to the level of the 1st stone. A 0 Nitinol basket was placed more proximally. A 365 micron Holmium laser fiber was then used to break the stone up into smaller fragments. Those were extracted with the basket. Repeat ureteroscopy in a more proximal level revealed a 2nd stone which was approximately 6 mm as opposed to 8 mm was the 1st one. We had used the laser to break it up into small fragments as well. Repeat ureteroscopy to the level of ureteropelvic junction and actually the renal pelvis then showed no evidence of sizable residual stone fragments and no evidence of ureteral injury. Given the large stones in the left renal pelvis and significant mucosal edema, we elected to place a ureteral stent. In a standard fashion 6-Indonesian, 22 cm ureteral stent was placed over the wire via the cystoscope with the proximal coil position confirmed fluoroscopically, distal coil visualized. The bladder was emptied. Cystoscope was removed. She was extubated and taken to PACU for further recovery. ESTIMATED BLOOD LOSS: None. COMPLICATIONS: None. SPECIMENS: Left ureteral stone fragments which were sent off for analysis DRAINS: 6-Indonesian, 22 cm stent. DISPOSITION: Back to the floor. I have discussed the patient with Dr. Easley and we agree to observe overnight given her admission was shortness of breath and if doing well she will be discharged the following morning. I have discussed with the patient that I will plan on performing a left ESWL and stent removal in the near future given her large left-sided renal stones. She voiced understanding. cc: Deni Rodriguez MD
--- NOTE | 2018-11-07 10:08 | PROGRESS NOTE ---
DATE: 11/07/2018 SUBJECTIVE: This morning Ms. Aguillon refers to be feeling a lot better. Denies any chest pain. No shortness of breath. Ms. Aguillon underwent cystoscopy, left ureteroscopy, laser lithotripsy and basket extraction of 2 stones, and placement of a 6-Syrian, 22 cm left ureteral stent yesterday. Postoperatively, she was okay. However, late yesterday in the evening she did have some shortness of breath associated with elevated heart rate. The EKG tracing revealed SVT. The patient was attended to by Dr. May. Adenosine was given to her and that resolved the SVT episode. She was transferred to CICU where she has been observed throughout the night, and by the telemetry monitoring tracing she seems to have been in sinus rhythm throughout the night. OBJECTIVE: Her current vitals: Blood pressure is 119/98, pulse of 72, respirations 17 and temperature is 97.7 degrees. Patient is saturating 95% on 4 L. General: Ms. Aguillon is a 73- year-old female. She is in bed. She is not in any cardiopulmonary distress. HEENT: Mucosa is pink and moist. Anicteric. Acyanotic. Neck: Supple. Chest: Clear to auscultation. No crepitations. No rhonchi. Cardiovascular: Regular rate and rhythm. No murmurs, no rubs, no gallops. Abdomen: Soft, nontender. Bowel sounds present. Extremities: No pedal edema. PLANT CHIEF: Patient is awake, alert, oriented x3. LABORATORY DATA: Has been reviewed. CBC is unremarkable. Chemistry: Potassium is 3.3. Rest of chemistry is unremarkable. ASSESSMENT: 1. Severe left hydronephrosis status post urological intervention. Today is day 1 postoperatively. Patient seems to be doing a lot better. 2. History of paroxysmal atrial fibrillation. The patient was on sotalol at home. However, during the hospital course, she did develop supraventricular tachycardia and was given adenosine. This morning, she seems to be asymptomatic. She is in sinus rhythm. We will get Cardiology to evaluate her before she gets discharged. 3. 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 4. Generalized fatigue, improved. 5. Dyspnea on presentation with normal echocardiogram and normal proBNP. Unsure the etiology. But it could be multifactorial: medication related, paroxysmal cardiac arrhythmia and pulmonary AV malformation causing shunts. In any case, the patient's symptoms have resolved. 6. 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 PLAN: So, in general, Ms. Aguillon seems to be completely asymptomatic at this point. Heart is in sinus rhythm and normal rate. We are pending Cardiology evaluation today. I think after that patient can potentially be discharged if no further intervention is needed. Of note Ms. Aguillon used to follow up with a [employer] and, since she is living here in [place] for the past 11 years, she has not seen any [employer] and she has been on sotalol. She normally follows up with her primary care doctor. cc: Rachid Easley MD MTDD
--- NOTE | 2018-11-07 10:47 | EKG Report ---
Test Performed on : 11/07/2018 10:39:07 AM Test Reason : SVT Blood Pressure : / mmHG Vent. Rate : 062 BPM Atrial Rate : 062 BPM P-R Int : 172 ms QRS Dur : 084 ms QT Int : 464 ms P-R-T Axes : 032 030 056 degrees QTc Int : 470 ms Normal sinus rhythm. Normal ECG When compared with ECG of 06-NOV-2018 18:26, (Unconfirmed) ST no longer depressed in Anterior leads Nonspecific T wave abnormality, worse in Lateral leads Confirmed by Yunier MCLAIN, Eduardo Rojas ([id number]) on 11/07/2018 5:10:02 PM
[2018-11-07] MEDS: NORCO-7.5 PO PRN (11:16)
[2018-11-07 11:41] LABS: CK INDEX 2.5 (0.0-2.5); CK-MB 6.06 ng/mL (0.0-5.0)
[2018-11-07] MEDS: ROCEPHIN 1 GM in NS 50 ML IV SCH (13:36)
--- NOTE | 2018-11-07 21:53 | CONSULTATION ---
DATE OF CONSULTATION: 11/07/2018 IMPRESSION: 1. Recurrent episode of supraventricular tachycardia, interrupted with adenosine. Patient continues in sinus rhythm. 2. 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 Echocardiography suggests significant degree of agjor-gy-[id number] interatrial shunting on intravenous agitated saline contrast study sufficient to raise concern for potential for paradoxical embolus. This indeed is a concern given history of recurrent cerebrovascular accident x3. There also needs to be some consideration of the possibility of hereditary hemorrhagic telangiectasia (Nciak-Jwmaz-Egapk syndrome). 3. Dyspnea on presentation with normal LV function and normal ProBNP. 4. History of patent foramina ovale. Patient is status post what appears to be an Amplatzer closure device in 2003 following her second cerebrovascular accident. 5. Recurrent cerebrovascular accident initially in 1988. Then in 2003 and last episode of cerebrovascular accident 2012. Patient has residual left-sided weakness and walks with a cane. 6. She has no known drug allergies. RECOMMENDATIONS: 1. Filter intravenous fluid administrations to prevent air embolus. 2. Obtain brain imaging study to screen for AVM. 3. At least in the short term favor pursuit of anticoagulation to lessen the risk for paradoxical embolus. Ultimately, patient should be considered for embolization of pulmonary AVM. 4. Antibiotic prophylaxis with dental procedures is appropriate to prevent septic emboli and associated abscess. 5. If hereditary hemorrhagic telangiectasia discovered, consider genetic testing and possibly screening of family members. HISTORY: This 73-year-old white female with past history of recurrent cerebrovascular accident, percutaneous closure of patent foramen ovale, and pulmonary arterial venous malformation was admitted with two weeks of shortness of breath symptoms. Patient was seen in urgent care prior to coming to the emergency room and was found to have oxygen saturation of 88%. There has been no orthopnea. She has not had any chest pain. She prefers to lie on her left side and tends to not want to get up much according to family. She is not certain as to why she prefers to do this, but possibility of positional hypoxemia is to be considered. She suffered initial cerebrovascular accident in 1988 and had recurrent cerebrovascular accident in 2003. At that time, she had percutaneous closure of PFO with Amplatzer device. She has had paroxysmal supraventricular tachycardia and has been on sotalol for 15 years to suppress this. PAST MEDICAL HISTORY: 1. Recurrent cerebrovascular accident. 2. Pulmonary arterial venous malformation. 3. Paroxysmal supraventricular tachycardia suppressed with sotalol. 4. Status post Amplatzer device. 5. Nephrolithiasis. 6. Status post cystoscopy and ureteral stent for left ureteral stone. 7. Past surgical history also includes section. 8. She also has history of skin cancer removal. 9. Previous seizures in the past. ALLERGIES: She has no known drug allergies. MEDICATIONS: Prior to admission as listed. SOCIAL HISTORY: She is . She lives at home. She does not smoke nor use alcohol. FAMILY HISTORY: Negative for premature coronary disease. There is no known family history of arteriovenous malformations. REVIEW OF SYSTEMS: Pulmonary: Noteworthy for dyspnea over the last 2 weeks but negative for orthopnea. Gastrointestinal: Negative. Constitutional: Negative for fever. Remainder of review of systems negative/noncontributory with 14 total systems reviewed. PHYSICAL EXAMINATION: General: This is a pleasant, overweight elderly white female in no distress. Vital signs: Blood pressure 132/51, heart rate 60, oxygen saturation 90-94% on nasal cannula oxygen at 2 L/minute. HEENT: Extraocular movements appear intact. Dentition is in poor repair. Mucous membranes are moist. Neck: Supple without jugular venous distention. No carotid bruits. Chest: Clear to auscultation bilaterally. Cardiac Exam: Reveals a regular rate and rhythm without appreciable murmur or gallop. Abdomen: Soft. Bowel sounds are normal. Extremities: Without edema. Neurologic: Exam reveals her to be awake and responsive. Speech is fluent. She has some left-sided weakness, more so on the left lower extremity. PERTINENT DATA: Twelve lead EKG obtained last night during supraventricular tachycardia demonstrates narrow complex tachycardia that appears to be supraventricular tachycardia with associated rate related ST and T-wave abnormality. Repeat ECG following administration of adenosine shows abrupt interruption of supraventricular tachycardia with normal sinus rhythm and nonspecific ST and T-wave abnormality demonstrated. LABORATORY DATA: Includes a white blood cell count 7.91, hematocrit 41.9, hemoglobin 14.3, platelet count 223. Sodium 142, potassium 3.3, chloride 106, carbon dioxide 24, BUN 15, creatinine 0.8. Glucose 98. cc: Hipolito Rocha MD
[2018-11-07] MEDS: AMBIEN PO PRN (22:51)
[2018-11-08] MEDS: NS 1,000 ML IV SCH ×2 (02:15→06:10)
[2018-11-08] MEDS: DUONEB (A & A) INH SCH ×4 (03:32→15:53)
[2018-11-08] MEDS: PRILOSEC PO SCH ×2 (05:38→06:10)
[2018-11-08] MEDS: KLONOPIN PO SCH (08:44)
[2018-11-08] MEDS: COMPAZINE PO SCH ×2 (08:44→12:47)
[2018-11-08] MEDS: BETAPACE PO SCH (08:44)
[2018-11-08] MEDS: LEXAPRO PO SCH (08:44)
--- NOTE | 2018-11-08 09:11 | Diag Imaging Result Doc PS360 ---
CT HEAD W/O CONTRAST - 11/08/2018 INDICATION: R/O aneurysm COMPARISON: 10/08/2012 FINDINGS: There is a stable large area of encephalomalacia at the lateral right cerebral hemisphere in the middle cerebral artery territory. Grossly stable mild to moderate periventricular white matter chronic microvascular disease diffusely. No intracranial mass or hemorrhage. No skull fracture. There is severe sinusitis with complete opacification of the left maxillary sinus and a couple ethmoid cells. Mastoids and middle ears are clear. IMPRESSION: Sinusitis. Stable chronic ischemic changes of the brain. This exam was performed using automated exposure control, adjustment of mA or kV according to patient size, and/or use of iterative reconstruction technique Electronically signed by Garrick Golden 11/08/2018 9:09 AM
--- NOTE | 2018-11-08 09:14 | Diag Imaging Result Doc PS360 ---
CT ANGIOGRAM HEAD - 11/08/2018 INDICATION: R/O aneurysm TECHNIQUE: Axial CT images were obtained after administering intravenous contrast. Three-dimensional angiographic images were generated. COMPARISON: None FINDINGS: The intracranial arteries are normal in size and contour. There is no aneurysm. No significant atherosclerotic calcification or stenosis. Anatomy is conventional. IMPRESSION: Negative exam. This exam was performed using automated exposure control, adjustment of mA or kV according to patient size, and/or use of iterative reconstruction technique Electronically signed by Garrick Golden 11/08/2018 9:12 AM
[2018-11-08 15:44] VITALS: BP 136/61
--- NOTE | 2018-11-08 16:17 | DISCHARGE SUMMARY ---
ADMISSION DATE: 11/04/2018 DISCHARGE DATE: 11/08/2018 DISPOSITION: Is home. FOLLOWUP: Will be 1. Dr. Dunn. 2. Dr. Rodriguez. 3. Dr. Rocha. 4. Dr. Gomez. CONSULTATIONS: Cardiology was consulted. Patient was seen by Dr. Rocha. Urology was consulted. Patient was seen by Dr. Rodriguez. INVASIVE PROCEDURES: Cystoscopy, left ureteroscopy, laser lithotripsy, stone basket extraction of 2 ureteral stones and placement of a 6-Vatican Citizen 22 cm left ureteral stent was placed in by Dr. Rodriguez on 11/06/2018. IMAGING STUDIES: Of significant. A chest x-ray initially showed no acute disease. A CTA of the lungs was negative. However there was a longstanding pulmonary arteriovenous malformation in the right middle lobe. There was also severe left hydronephrosis due to numerous large obstructing left ureter stones, there is a large bilateral renal stones. An echocardiogram showed an ejection fraction of 60%. Bubble studies was consistent with possible extracardiac shunting which presumed to be the pulmonary malformation. A CTA of the head showed no aneurysms, no significant atherosclerotic calcification or stenosis, anatomy is conventional. A CT scan of the head without contrast showed a stable large area of encephalomalacia on the lateral right cerebral hemisphere. ADMISSION DIAGNOSIS: 1. Obstructing left ureteral stones with left hydronephrosis. 2. Bilateral renal stones. Shortness of breath. 1. Hypoxemia. 2. Possible urinary tract infection. DIAGNOSIS AT THE TIME OF DISCHARGE: 1. Dyspnea on presentation associated with Acute on chronic hypoxemia due to pulmonary arterial venous malformation with shunting. Patient will be oxygen dependent. Will also follow up with pulmonary medicine. 2. Severe left hydronephrosis status post urological intervention. 3. Bilateral nephrolithiasis. 4. History of paroxysmal atrial fibrillation with superficial venous thrombosis during the hospital course. 5. History of previous right middle cerebral artery territory stroke with a left residual hemiparesis. 6. Chronic fatigue improved. DISCHARGE MEDICATIONS: 1. Sotalol 120 p.o. b.i.d. 2. Zolpidem 5 mg p.o. at bedtime. 3. Lexapro 20 mg p.o. daily. 4. Klonopin 0.5 b.i.d. 5. Gabapentin 300 b.i.d. 6. Levothyroxine 50 mcg p.o. daily. 7. Lovastatin 40 mg p.o. daily. 8. Eliquis 5 mg b.i.d. PRESENTING COMPLAINT: Was shortness for 2 days. HISTORY OF PRESENTING COMPLAINT: Ms. Aguillon 73-year-old female who has a history of CVA, paroxysmal atrial fibrillation, presented to the emergency department because of wax and wane shortness of breath especially on exertion. On presentation she was found to have oxygen saturation of 88%. She was placed on oxygen. She does have a history of PFO repair back in the days. During the hospital course the investigation did reveal large bilateral kidney stones worse on the left so she was transferred to [facility] for urology evaluation and higher level of care. HOSPITAL COURSE: Ms Aguillon was admitted to the medical floor. She underwent urological intervention which was successful, stone extraction and stent was placed in the left ureter. Postoperatively she did well. Her dyspnea and hypoxemia was improved with oxygen therapy. A CTA of the lung did not show any infection and PE was also ruled out. However they did make mention of a stable pulmonary DWIGHT with shunting and echocardiogram also proved it. Patient was evaluated by Cardiology and there was a recommendation to start the patient on anticoagulation once AVMs in the brain have been ruled out. A CTA of the of the brain was done and it was negative for aneurysms or AVMs. This morning Ms. Aguillon refers to be feeling a whole lot better. No more shortness of breath. She was completely asymptomatic from the urology standpoint. We think she is fairly stable for discharge. Cardiology has recommended that patient goes on anticoagulation and also to be evaluated on outpatient base about the management of the pulmonary AVMs. Ms Aguillon will therefore be followed up by Cardiology and has also been given a referral to see Pulmonary Medicine. All the discharge instructions have been discussed with her and she voiced understanding. TIME SPENT: 35 minutes. cc: Hipolito Rocha MD [facility] CENTERPeter
--- NOTE | 2018-11-08 17:45 | DISCHARGE SUMMARY ---
ADMISSION DATE: 11/04/2018 DISCHARGE DATE: ADDENDUM: DISCHARGE DIAGNOSIS: Dyspnea on presentation secondary to acute on chronic hypoxemic respiratory failure due to pulmonary aterio-venous malformation with shunting. Patient is going to be oxygen dependent and she will follow up with Pulmonary Medicine. cc: Rachid Easley MD MTDD
[2018-11-08] MEDS ORDERED: ELIQUIS PO SCH (21:00)
== END 2018-11-08 17:50 | disposition home health service (06) | DRG 659 ==
LOC: P.ED 10:41 → 4N 16:14 → SUATTDRO 16:14 → 4N 11-05 06:30 → 3S 11-06 21:24
PROVIDERS: ATTEND Internal Medicine
CPT/HCPCS: 70450; 70496; 71020; 71046; 71275; 76000; 80053; 80069; 81001; 82360; 82550; 82553; 82607; 82728; 82746; 82805; 83540; 83550; 83880; 84443; 84484; 85025; 87088; 88300; 93005; 93010; 93306; 94640; 94761; 94799; 96365; 96375; 99285; A9270; J0150; J0153; J0696; J2930; J3475; J3480; J7030; Q9967